=== PATIENT | male | born 1970 | race Caucasian/White ===

== ENCOUNTER 2023-04-28 08:53 | Outpatient (CLI) | payer BC, SELFPAY ==
--- NOTE | 2023-04-28 09:15 | MR_ITS ---
[address] [address] Phone:?[phone] Fax:?[phone] Referring Physician Information: Jose Davis [address] [facility] [address] Phone:?[phone] Fax:?[phone] Patient:Norman Mathieu D.O.B:?1970 Sex:?Male Phone:?[phone] [facility] MRN:?[id number] Exam Date:?04/28/2023 EXAM: MRI of the RIGHT SHOULDER, without contrast CLINICAL: Right shoulder pain. Evaluate for rotator cuff tear. COMPARISONS: X-rays dated 04/17/2023. TECHNICAL: Multiplanar multisequence MRI of the right shoulder was obtained. SEDATION: None. CONTRAST: None. FINDINGS: Rotator cuff: Supraspinatus/Infraspinatus: There is mild partial interstitial/articular surface tearing of the distal supraspinatus tendon extending into the anterior distal infraspinatus tendon. No full-thickness or retracted tendon tear. No significant fatty atrophy of the muscle bellies. Teres minor: No tendinosis, tear or atrophy. Subscapularis: Mild tendinosis of the distal tendon without significant tendon tear. No significant fatty atrophy of the muscle belly. Bursae: Subacromial-subdeltoid: No significant bursal fluid. Subcoracoid: No significant bursal fluid. Coracoacromial arch: Acromion morphology: Type II. No os acromiale. Acromiohumeral space: Within normal limits. Coracohumeral space: Within normal limits. Biceps tendon, long head: Intraarticular and extraarticular segments intact without rupture, tendinopathy or displacement. Glenohumeral joint: Physiologic volume of joint fluid. Articular cartilage: No significant chondral loss. Capsule: There is irregularity and increased signal involving the inferior glenohumeral ligament with mild adjacent soft tissue edema about the inferior glenohumeral ligament. No capsular disruption. Labrum: There is fraying and tearing of the superior labrum posterior to the biceps anchor as seen on coronal series 4 images 14-16. There is mild fraying of the anteroinferior labrum. No perilabral cyst identified. Bones: No suspicious marrow signal alteration, fracture or dislocation. Acromioclavicular joint: No acute injury, arthropathy, or inferior hypertrophy. IMPRESSION: 1. Mild partial tearing of the distal supraspinatus tendon extending into the anterior distal infraspinatus tendon. Mild tendinosis of subscapularis tendon. No full-thickness or retracted rotator cuff tendon tear. 2. Fraying and tearing of the superior labrum posterior to the biceps anchor with mild fraying of the anteroinferior labrum. 3. Appearance of the inferior glenohumeral ligament which can be seen in patients with adhesive capsulitis. 4. Intact long head biceps tendon. No glenohumeral chondral defects or fracture. JCZ Electronically signed on 05/01/2023 7:27:00 AM by Elvin White D.O.
== END 2023-04-28 08:54 | disposition home or self-care (01) ==
PROVIDERS: Visit Provider Physician Assistant
DX: M25.511 Pain in right shoulder (principal); M75.101 Unspecified rotator cuff tear or rupture of right shoulder, not specified as traumatic; S43.431A Superior glenoid labrum lesion of right shoulder, initial encounter; M75.01 Adhesive capsulitis of right shoulder
CPT/HCPCS: 73221